=== PATIENT | female | born 1930 | race Caucasian/White ===

== ENCOUNTER 2017-06-27 09:03 | Observation (INO) | payer MEDICARE, OTHER ==
[~2017-06-27] VITALS: Ht 149.9 cm; Wt 50.4 kg
--- NOTE | ~2017-06-27 | HP ---
PATIENT'S NAME: CHERY TORIBIO [facility] AGE: 87 Y [address] ROOM: [place] [address] LOCATION: [facility] ADMIT DATE: 06/27/2017 History & Physical DISCHARGE DATE: FAMILY PHYSICIAN: Lupillo Michael MD ATTENDING PHYSICIAN: CRYS GUILLEN DATE OF SERVICE: CHIEF COMPLAINT: Bloody diarrhea, abdominal pain, and fatigue. HISTORY OF PRESENT ILLNESS: The patient is a very pleasant 87-year-old female with a past medical history of hypertension, GERD, diverticular disease, and recurrent urinary tract infections; who came into the hospital today with 1-day history of bloody diarrhea, abdominal pain, and fatigue. The patient states at about 10 o'clock yesterday, she started to have diarrhea that was completely water and then thereafter developed some abdominal cramping and passed bloody diarrhea thereafter. She had about 2 to 3 episodes of bloody diarrhea yesterday. During the day, she was fatigued and therefore she would not get out of bed to get water. She states this morning, she also had some spotting on her pad that she wears for chronic urinary incontinence. However, since 06:30 this morning, her abdominal pain has resolved. She has not had another bowel movement and she is feeling overall better, however, she states she still feels dehydrated and that her mouth is dry. The patient states that she had a similar episode of bleeding 2 to 3 years ago, for which she was admitted to the hospital, however, she does not recall the etiology of her symptoms or if they did anything for her. SOCIAL HISTORY: The patient currently lives at home alone and is independent with all ADLs. Her son comes in daily to visit her and check up on her. ALLERGIES: SULFA DRUGS. MEDICATIONS: 1. Verapamil ER 240 mg daily. 2. Omeprazole 20 mg daily. 3. Enalapril 20 mg daily. 4. Potassium chloride 10 mEq daily. 5. Vitamin C. 6. Multivitamins. REVIEW OF SYSTEMS: PATIENT'S NAME: CHERY TORIBIO [facility] AGE: 87 Y [address] ROOM: [place] [address] LOCATION: [facility] ADMIT DATE: 06/27/2017 History & Physical DISCHARGE DATE: FAMILY PHYSICIAN: Lupillo Michael MD ATTENDING PHYSICIAN: CRYS GUILLEN The patient currently endorses feeling fatigued, however, she denies a headache or issues with her vision. She denies shortness of breath or chest pain. She denies any issues with her breathing. She denied any fevers, nausea, or vomiting. She endorsed chronic issues with her bowels alternating from constipation to diarrhea. Denies any muscle aches or arthralgias. PHYSICAL EXAMINATION: VITAL SIGNS: Temperature is 97.6 Fahrenheit, blood pressure 116/51, heart rate 68, and respirations 20. GENERAL: The patient is in no acute distress. She is alert and oriented x3. CARDIOVASCULAR: She is regular in rate and rhythm. No murmurs appreciated. CHEST: Clear to auscultation bilaterally. Good air entry bilaterally. ABDOMEN: Soft. Completely nontender. Bowel sounds are normal. GENITOURINARY: The patient has dry blood present over her perineum and vagina. On vaginal exam, she was noted to have small light lesion on her labia minora on the right side. No blood appreciated within the vaginal vault. No lacerations of the vagina or cervix. Hemorrhoids are present both internal and external. EXTREMITIES: She has no peripheral edema. She is moving all extremities spontaneously. LABORATORY DATA AND IMAGING: CBC notable for a white count of 17.2 and hemoglobin of 15.7. BMP notable for a BUN of 24 and a creatinine of 1.3. Albumin of 3.3. Lactate of 2.2. She had an occult blood that was done that was negative. INR of 1.08. She had a UA that was done that showed 5 to 10 epithelial cells, 0 to 2 red blood cells with 10 blood on urinalysis, 25 leukocytosis, 10 to 20 white blood cells on micro, rare bacteria, mucus 1+, and amorphous 1+. CT of the abdomen performed, showed nonspecific colitis of the left descending colon. ASSESSMENT: 1. Nonspecific colitis of the left descending colon. 2. Hematochezia. 3. Diarrhea. 4. Acute kidney injury. 5. Hypertension. 6. Gastroesophageal reflux disease. 7. Recurrent urinary tract infections. 8. Right labial lesion. PLAN: 1. The patient has nonspecific colitis seen on CT with an elevated white count and an elevated lactate, however, the patient is currently doing well without any pain or bleeding. Do not feel like this is infectious PATIENT'S NAME: CHERY TORIBIO [facility] AGE: 87 Y [address] ROOM: [address] [address] LOCATION: [facility] ADMIT DATE: 06/27/2017 History & Physical DISCHARGE DATE: FAMILY PHYSICIAN: Lupillo Michael MD ATTENDING PHYSICIAN: CRYS GUILLEN at this time given that she has been afebrile and mild symptoms. We will trend her lactate later this afternoon to make sure it is coming down. Other thought is that her hemorrhoids may be intermittently prolapsing. If her symptom is recur, we will consult GI during this admission, otherwise she can follow with them on an outpatient basis, low concern for ischemic colitis at this time. 2. ANNE: The patient has a creatinine of 1.3, which is mildly elevated per normal range, however, the patient is pretty small lady, so would expect her creatinine to be on the low end of normal range, therefore ANNE may be more severe than lab value is representing. Given her poor oral intake and diarrhea, likely prerenal in nature, the patient received a liter of fluid in the ED and we will encourage p.o. intake and recheck her creatinine in the morning. 3. Labial lesion: ER physician called fire watchman regarding labial lesion. They felt like it could be followed up on an outpatient basis and there is no need to do further workup in the hospital here, so we will have the patient follow up with Gynecology as an outpatient. 4. Hypertension: We will continue home medications of verapamil and enalapril. 5. GERD: We will continue home medication of omeprazole 20 mg daily. 6. Recurrent UTIs: We will continue vitamin C here in the hospital. 7. Code status: Full code. 8. DVT prophylaxis: The patient is mobile and in observation. Did not feel like DVT prophylaxis is necessary at this time. MORGAN GONZALEZ MD FOR NADEEM CAPUTO MD KV/moses /[id number] D: [id number] T: [id number] HISTORY & PHYSICAL
--- NOTE | ~2017-06-27 | ER ---
PATIENT'S NAME: CHERY GONZALEZ [facility] AGE: 87 Y [address] ROOM: [place] [address] LOCATION: [facility] ADMIT DATE: 06/27/2017 ER/Outpatient Report DISCHARGE DATE: FAMILY PHYSICIAN: Lupillo Michael MD ATTENDING PHYSICIAN: CRYS GUILLEN CHIEF COMPLAINT: Bloody stools and weakness. HISTORY OF PRESENT ILLNESS: Ms. Gonzalez presents for evaluation of diarrhea that she states is bloody starting yesterday evening and then to today. The blood has been much more prominent today. She endorses slight left-sided abdominal pain with this. She has a history of diverticulitis. She is originally from the [place], [place] area, but came here directly because this is where she had to end up last time this happened. She describes that there is cramping like sensation and it does not radiate. She denies any other symptoms but thinks that the blood may be coming from the vagina as well. She denies any heat or cold intolerance, weight loss, or significant weight changes and is otherwise feeling okay. PAST MEDICAL HISTORY: Documented on the record and reviewed by me. SOCIAL HISTORY: Documented on the record and reviewed by me. MEDICATIONS: Documented on the record and reviewed by me. ALLERGIES: DOCUMENTED ON THE RECORD AND REVIEWED BY ME. REVIEW OF SYSTEMS: All systems reviewed and negative except as noted in the HPI. PHYSICAL EXAMINATION: VITAL SIGNS: Blood pressure 135/63, pulse is 80, respiratory rate 16, temperature 96.8, SpO2 is 96% on room air. Pain is rated at 1/10 to 2/10. GENERAL: An age appropriate female, recumbent on exam table. No apparent pain or distress. NEUROLOGIC: Awake and alert. GCS is 15. No focal deficits. No asymmetry. HEENT: Normocephalic and atraumatic. Eyes are PERRL. Oropharynx is clear. NECK: Supple. Trachea is midline. PATIENT'S NAME: CHERY GONZALEZ [facility] AGE: 87 Y [address] ROOM: [place] [address] LOCATION: [facility] ADMIT DATE: 06/27/2017 ER/Outpatient Report DISCHARGE DATE: FAMILY PHYSICIAN: Lupillo Michael MD ATTENDING PHYSICIAN: CRYS GUILLEN CHEST/HEART: Regular rate and rhythm with no murmurs. LUNGS: Clear to auscultation bilateral. No rhonchi, wheezes, or rales. ABDOMEN: Soft with very mild tenderness in the left lower quadrant, nonfocal. No rebound or guarding. No masses. BACK: Normal to inspection and palpation. : The perineum is notable for what appears to be dried blood throughout, however, it does not easily clean off. It does flake occasionally if dry. The actual skin in the folds does not contain this discoloration. On the vagina, the right labia is notable for a 4 mm diameter white plaque, which does not easily remove and is surrounded by scant erythema. It is nontender. The vaginal exam is unremarkable with no evidence of bleeding or recent bleeding. The os is closed. The cervix was nontender. RECTAL: The patient has external and internal hemorrhoids. No recent evidence of bleeding. No blood grossly in the rectal vault. No stool. Hemoccult was reported as negative. EXTREMITIES: Warm and well perfused with no deformities or edema. SKIN: Clean, dry, and intact. LABORATORY DATA AND X-RAYS: CT scan of the abdomen noncontrast secondary to renal function is noted to have colitis of unclear etiology of the left side of the abdomen. Labs; urinalysis, no clear infection, catheterized specimen with 5-10 epithelial cells, but 10-20 whites, 0-2 reds, and rare bacteria. CMS with no appreciable electrolyte abnormalities other than a CO2 of 20, creatinine is 1.3, with a GFR of 37, which is changed significantly for since 2014, no other comparison labs immediately available. CBC with a white count of 17.2, predominantly neutrophils of 14.4, hemoglobin is 15.7, platelets of 318. INR is 1. Lactate is 2.2. Hemoccult is negative. IMPRESSION: 1. Colitis. 2. Possible gastrointestinal bleeding. 3. Possible vaginal bleeding. 4. Azotemia, unclear significance. 5. Leukocytosis. 6. Right labial lesion of the vagina. EMERGENCY DEPARTMENT COURSE: The patient was seen and evaluated as above. We cleaned her as best we could. The discoloration of the perineum did not remove easily as expected with dried blood. However, I do not know what else this might be and the patient does not know how long it has been there. There is no evidence of active bleeding at this time. The patient does have azotemia indicating that she is not keeping up with her fluids and she also has leukocytosis. She was given a total of 500 mL of normal saline and then transitioned to an infusion rate of PATIENT'S NAME: CHERY GONZALEZ [facility] AGE: 87 Y [address] ROOM: [place] [address] LOCATION: [facility] ADMIT DATE: 06/27/2017 ER/Outpatient Report DISCHARGE DATE: FAMILY PHYSICIAN: Lupillo Michael MD ATTENDING PHYSICIAN: CRYS GUILLEN 75 mL an hour. She remained otherwise well. Based on her overall presentation, I will have her admitted to the hospitalist service for observation. I did discuss the vaginal lesion with Dr. Turner, agricultural technician, and she is recommending followup for biopsy within 1-2 weeks. This was conveyed directly to the patient and the hospitalist team. All questions were answered and the patient was admitted without further issue. KIRSTY MD SAW TORRES/moses /[id number] d: 06/27/[id number] t: 07/02/17 0642, OUTPATIENT REPORT
--- NOTE | ~2017-06-27 | DS ---
PATIENT'S NAME: CHERY TORIBIO [facility] AGE: 87 Y [address] ROOM: [address] [address] LOCATION: [facility] ADMIT DATE: 06/27/2017 Discharge Summary DISCHARGE DATE: 06/28/2017 FAMILY PHYSICIAN: Lupillo Michael MD ATTENDING PHYSICIAN: Aurelio Hurst DISCHARGE DIAGNOSES: Distal colon colitis, hematochezia, diarrhea, right labial lesion, hypertension, gastroesophageal reflux disease, recurrent urinary tract infections. OPERATIONS AND PROCEDURES: None. HISTORY OF PRESENT ILLNESS: Pleas see dictated H and P. HOSPITAL COURSE: In the emergency room, patient was found to have nonspecific distal colon colitis on CT. Her lab abnormalities included a leukocytosis of 17.2, hemoglobin was 15.7. Her creatinine was 1.3, BUN 24, lactate 2.2. A CRP of 9, and ESR of 18. The patient was given 1 L of fluids in the emergency room with the IV. At the time of assessment in the emergency room, the patient was no longer symptomatic and had not had a bowel movement that day. So, decision was made to admit her to observation and encourage her to continue to drink. In the morning, her white count had dropped to 12.6, her creatinine to 1.0, and her lactate to 1.1. The patient only complained of very mild intermittent left lower quadrant pain. She did not have any bowel movements while in the hospital. She stated that she felt really good and would like to go home. DISCHARGE INSTRUCTIONS: The patient advised to follow up with her primary care provider early next week. The patient also instructed to follow up with a solderer torch in the next 1-2 weeks to have her labial lesion investigated. I told the patient that in the meantime, her symptoms may recur and if they do and she has abdominal pain and/or bleeding, to return to the emergency room. DISCHARGE MEDICATIONS: The patient was restarted on home medications of: 1. Verapamil 240 daily. 2. Omeprazole 20 mg daily. 3. Enalapril 20 mg daily. 4. Potassium chloride 10 mEq daily. 5. Vitamin C. 6. Multivitamin. FOLLOWUP: Follow up with PCP Saturday and Saturday next week and Gynecology in 1- 2 weeks. CONDITION: Good. PATIENT'S NAME: CHERY TORIBIO [facility] AGE: 87 Y [address] ROOM: [address] [address] LOCATION: [facility] ADMIT DATE: 06/27/2017 Discharge Summary DISCHARGE DATE: 06/28/2017 FAMILY PHYSICIAN: Lupillo Michael MD ATTENDING PHYSICIAN: Aurelio Hurst I spent 45 minutes discussing with the patient her diagnosis and planning for discharge. MORGAN GONZALEZ MD FOR NADEEM CAPUTO MD KV/modl /[id number] d: 06/29/17 0502 t: 07/11/17 0929, DISCHARGE SUMMARY
[~2017-06-27 09:03] MED LIST: ASCORBIC ACID500 MG PO; CALAN SR240 MG PO; CIPRO500 MG PO; HYDROCHLOROTHIA25 MG; K-TAB 10MEQ10 MEQ PO; MIRALAX17 GM PO; OSCAL + D500 MG PO; PRILOSEC20 MG PO; TYLENOL325 MG PO; ULTRAM50 MG PO; VASOTEC20 MG PO
[2017-06-27 09:53] LABS: BILIRUBIN URINE NEGATIVE (NEGATIVE); BLOOD URINE 10 /UL (NEGATIVE); COLOR URINE YELLOW (YELLOW); GLUCOSE URINE NEGATIVE (NEGATIVE); KETONE URINE 5 mg/dL (NEGATIVE); LEUKOCYTES URINE 25 /UL (NEGATIVE); NITRITE URINE NEGATIVE (NEGATIVE); PROTEIN URINE 30 mg/dL (NEGATIVE); SPEC GRAVITY URINE 1.015 (1.003-1.035); TURBIDITY URINE CLEAR (CLEAR); UROBILINOGEN URINE NORMAL (NORMAL)
[2017-06-27 10:05] LABS: BASOPHIL # 0.1 K/uL (0.0-0.2); BASOPHIL % 0.5 %; EOSINOPHIL % 0.2 %; HEMATOCRIT 45.1 % (30.0-46.0); HEMOGLOBIN 15.7 g/dL (10.0-15.0); IMMATURE GRANULOCYTE % 0.2 %; LYMPHOCYTE # 1.6 K/uL (0.8-4.0); LYMPHOCYTE % 9.1 %; MCH 35.2 pg (27.0-34.0); MCHC 34.8 gm/dL (32.0-36.5); MCV 101.1 fl (83.0-98.0); MONOCYTE # 1.1 K/uL (0.0-1.0); MONOCYTE % 6.2 %; MPV 8.3 fl (9.4-12.4); NEUTROPHIL # (ANC) 14.4 K/uL (1.8-7.8); NEUTROPHIL % 83.8 %; NRBC % 0 /100WBC (0-0.00); PLATELET COUNT 318 K/uL (150-450); RBC 4.46 M/uL (3.00-5.00); RDW-CV 11.8 % (11.9-14.6)
[2017-06-27 10:06] LABS: WBC 17.2 K/uL (4.0-11.0)
[2017-06-27 10:13] LABS: INR - (THERAPEUTIC) 1.08 (0.92-1.07); PROTIME 11.3 SECONDS (9.8-11.4); PTT 38 SECONDS (25-32)
[2017-06-27 10:26] LABS: ALBUMIN 3.3 gm/dL (3.5-5.0); ANION GAP 15.1 (10.0-19.0); CALCIUM 9.2 mg/dL (8.5-10.5); CREATININE 1.3 mg/dL (0.5-1.1); POTASSIUM 4.1 mMol/L (3.7-5.1); TOTAL BILIRUBIN 0.8 mg/dL (0.0-1.5); TOTAL PROTEIN 7.1 g/dL (6.0-8.4)
[2017-06-27 10:31] LABS: RBC URINE 0-2 #/HPF (NEGATIVE)
[2017-06-27 10:32] LABS: AMORPHOUS URINE 1+ (NEGATIVE); BACTERIA URINE RARE (NEGATIVE); MUCUS URINE 1+ (NEGATIVE)
--- NOTE | 2017-06-27 13:47 | NUR ---
Pt is 87 y/o female admit for mild GI bleed/colitis for hospitalist. Allergy to sulfa. Red and yellow bracelet on. Hx dizziness,weakness,sinus problems, htn,diverticulitis,gerd,arthritis,GI bleed,hiatal hernia,ulcer,incontinent, frequent UTI. Pt alert and oriented x3. Resides at home by herself. Has a son who looks after her. She states she started having diarrhea yesterday am and has trouble with her bowels anyway between constipation and diarrhea. She states she feels weak and vomited her meds this am.
[2017-06-27] MEDS ORDERED: THERAGRAN-M1 TAB PO (14:01)
--- NOTE | 2017-06-27 17:40 | NUR ---
Significant Event: Pt admitted from ER. A/o., Cooperative with cares. Denies n/v. Has been up to BR x 2, both times there was small amt blood noted in brief. No BM's. Denies c/o. Is unsteady when up, using gaitbelt, bed alarm on. Uses call light. IV SL L) FA Follow up:
--- NOTE | 2017-06-28 03:45 | NUR ---
Pt is AOx3. Up with 1 assist. Encouraging po intake. Pt had no stools, but when voiding pt would have small amount of red mucousy drops in the bottom of the stool. Pt denies abdominal discomfort. Pt denies N/V.
[2017-06-28 05:59] LABS: BASOPHIL # 0.1 K/uL (0.0-0.2); BASOPHIL % 0.8 %; EOSINOPHIL # 0.2 K/uL (0.0-0.5); EOSINOPHIL % 1.7 %; HEMOGLOBIN 13.7 g/dL (10.0-15.0); IMMATURE GRANULOCYTE % 0.3 %; LYMPHOCYTE # 2.3 K/uL (0.8-4.0); LYMPHOCYTE % 18.3 %; MCH 34.6 pg (27.0-34.0); MCHC 34.3 gm/dL (32.0-36.5); MONOCYTE # 0.8 K/uL (0.0-1.0); MONOCYTE % 5.9 %; MPV 8.6 fl (9.4-12.4); NEUTROPHIL # (ANC) 9.2 K/uL (1.8-7.8); NRBC % 0 /100WBC (0-0.00); PLATELET COUNT 319 K/uL (150-450); RBC 3.96 M/uL (3.00-5.00); RDW-CV 11.9 % (11.9-14.6); WBC 12.6 K/uL (4.0-11.0)
[2017-06-28 06:21] LABS: ANION GAP 11.9 (10.0-19.0); CALCIUM 8.7 mg/dL (8.5-10.5); POTASSIUM 3.9 mMol/L (3.7-5.1)
--- NOTE | 2017-06-28 09:45 | NUR ---
Introduce self/role to patient and her son Delano. He lives in [place] as well and checks on his mom daily. She didn't use any DME at home and denied a need for any now. If she needs a walker she can borrow one from a family member. She has friends who still drive and take her to appointments if her son can't. There is other family in the area too. Denied any needs or barriers to going home or at home. Waiting to talk to a doctor to see if they determined anything. Son wants to get some breakfast those. Spoke to Ksenia Stone and she found out it would be awhile before they would be in. Let son know this. He is going to get breakfast and we will call him if doctor shows up. Added my name to the marker board, and Nurse Apryl added his info to the board.
--- NOTE | 2017-06-28 14:03 | NUR ---
Dismissal Note: Ambulates with SBA and walker. Voids without difficutly. Small bloody mucous in breif X1. No BM, is passing gas. Denies nausea. Denies pain. IV d/cd. Dismissal instructions given to patient and family, understanding stated. Dismissed to home with son per private vehicle.
== END 2017-06-28 12:30 | disposition disaster alternative care site (69) ==
LOC: GMED 09:03 → G3N 11:23
PROVIDERS: Emergency Medicine; Family Medicine; ADMIT Internal Medicine
DX: K52.9 Noninfective gastroenteritis and colitis, unspecified (principal); I10 Essential (primary) hypertension; K21.9 Gastro-esophageal reflux disease without esophagitis; N39.0 Urinary tract infection, site not specified; R19.5 Other fecal abnormalities; N17.9 Acute kidney failure, unspecified; Z88.2 Allergy status to sulfonamides; Z79.899 Other long term (current) drug therapy
CPT/HCPCS: G0378; J7030